=== PATIENT | male | born 1985 | race Caucasian/White ===

== ENCOUNTER 2017-11-30 09:28 | Emergency (ER) | payer OTHER ==
[2017-11-30 09:32] VITALS: BP 114/64
--- NOTE | 2017-11-30 09:42 | ER Report ---
History and Physical Time Seen By MD: 09:42 Hx. of Stated Complaint: PUNCHED WALL APPROX 30 MIN AGO - RIGHT HAND PAIN HPI/ROS CHIEF COMPLAINT: Right hand injury HISTORY OF PRESENT ILLNESS: This is a 31-year-old male. He punched a wall and now has pain in the right fifth metacarpal and MCP joint. Some redness and swelling associated. No complaint of numbness or tingling. Allergies: Coded Allergies: No Known Drug Allergies (Unverified , 01/23/15) Home Meds No Active Prescriptions or Reported Meds Reviewed Nurses Notes: Yes Hx Smoking: No Smoking Status: Never Smoker Hx Substance Use Disorder: No Hx Alcohol Use: No Constitutional Vital Sign - Last 24 Hours 11/30/17 09:32 Temp 97.5 Pulse 74 Resp 18 B/P (MAP) 114/64 Pulse Ox 94 O2 Delivery Room Air Physical Exam Gen.: Alert, no acute distress. Musculoskeletal: Pain over the distal fifth metacarpal and into the metacarpophalangeal joint. Normal motor function although it hurts to move it. No other pain with palpation on the other metacarpals or phalanges. Minimal pain in the wrist. Neurological: Normal sensation. Cardiovascular: Normal cap refill. Skin: No breakdown, but with some swelling and redness. Medical Decision Making EKG/Imaging Imaging Exam type: 3 views right hand History: punched wall, 5th metacarpal pain Comparison: None. Findings: There is an angulated fracture of the neck of the right 5th metacarpal with inferior angulation of the distal fragment. Soft tissue swelling is noted. Remainder the right hand is intact. Carpus aligns appropriately. IMPRESSION: 1. Angulated fracture of the neck of the right 5th metacarpal with associated soft tissues swelling. Report Dictated By: Bimal Cardona MD at 11/30/2017 10:23 AM ED Course/Re-evaluation ED Course Discussed the x-ray results with the patient. Ulnar gutter splint/half cast applied. Recommended to follow-up with orthopedic surgery. Procedure: Splint or Half-cast placement. A half-cast/splint as noted above was applied. After application of the half- cast, I returned and re-examined the patient. The half-cast was adequately immobilizing the joint and distally the patient's circulation and sensation was intact. This was applied by myself. Decision to Disposition Date: Nov 30, 2017 Decision to Disposition Time: 11:20 Depart Departure Latest Vital Signs Vital Signs Date Time Temp Pulse Resp B/P (MAP) Pulse Ox O2 Delivery O2 Flow Rate FiO2 11/30/17 09:32 97.5 74 18 114/64 94 Room Air Impression: Primary Impression: Boxers fracture Condition: Improved Disposition: HOME OR SELF-CARE New Scripts No Active Prescriptions or Reported Meds Patient Instructions: Boxer Fracture (ED) Additional Instructions: Ibuprofen 200mg over the counter tablets, take 4 tablets three times a day with food. Apply ice 20 minutes every 1-2 hours while awake. Wear the splint until you see orthopedic surgery. Rest the injured area, keep it elevated while at rest. Call [facility] Saturday to schedule an appointment with them. Problem Qualifiers Primary Impression: Boxers fracture Encounter type: initial encounter Fracture type: closed Qualified Codes: S62.339A - Displaced fracture of neck of unspecified metacarpal bone, initial encounter for closed fracture REINA KNOWLES MD Nov 30, 2017 09:42
--- NOTE | 2017-11-30 10:28 | RADIOLOGY IMAGING REPORT ---
FACILITY: [facility] [place] PATIENT NAME: Taran Garza : 1985 MR: [id number] V: [id number] EXAM DATE: ORDERING PHYSICIAN: REINA KNOWLES TECHNOLOGIST: Location: [facility] [place] Patient: Taran Garza : 1985 Visit/Account:[id number] Date of Sevice: 11/30/2017 Exam type: 3 views right hand History: punched wall, 5th metacarpal pain Comparison: None. Findings: There is an angulated fracture of the neck of the right 5th metacarpal with inferior angulation of th e distal fragment. Soft tissue swelling is noted. Remainder the right hand is intact. Carpus aligns a ppropriately. IMPRESSION: 1. Angulated fracture of the neck of the right 5th metacarpal with associated soft tissues swelling. Report Dictated By: Bimal Cardona MD at 11/30/2017 10:23 AM Report E-Signed By: Bimal Cardona MD at 11/30/2017 10:24 AM WSN:[id number]
[2017-11-30] MEDS ORDERED: IBUPROFEN 800 MG TAB PO ONE (10:35)
== END 2017-11-30 11:38 | disposition home or self-care (01) ==
LOC: ER 09:34
DX: S62.339A Displaced fracture of neck of unspecified metacarpal bone, initial encounter for closed fracture (principal)
CPT/HCPCS: 99283

== ENCOUNTER → 2018-07-07 | Outpatient (CLI) | payer OTHER ==
[2018-07-07 09:20] LABS: PLATELET COUNT, AUTOMATED 226 K/uL (150-450)
[2018-07-07 09:29] LABS: LDL CHOLESTEROL 138 mg/dl
== END ==
LOC: LAB 08:46
PROVIDERS: ATTEND Internal Medicine
DX: R94.5 Abnormal results of liver function studies (principal)
CPT/HCPCS: 36415; 81001; 82040; 82247; 82310; 82374; 82435; 82465; 82550; 82565; 82728; 82947; 83540; 83550; 83718; 84075; 84132; 84155; 84295; 84443; 84450; 84460; 84478; 84520; 85025; 86038

== ENCOUNTER → 2018-08-11 | Outpatient (CLI) | payer OTHER ==
[~2018-08-11] MED LIST: ALBU8.5H IH; AZIT-1 PO; BENZ200C15 PO
== END ==
LOC: LAB 09:14
PROVIDERS: ATTEND Internal Medicine
DX: R94.5 Abnormal results of liver function studies (principal)
CPT/HCPCS: 36415; 82040; 82247; 82310; 82374; 82435; 82565; 82947; 84075; 84132; 84155; 84295; 84450; 84460; 84520